=== PATIENT | female | born 1980 | race Two or more races ===

== ENCOUNTER 2025-02-07 05:58 | Inpatient (IN) | payer MEDICARE, OTHER ==
[~2025-02-07] VITALS: Ht 167.6 cm; Wt 106.8 kg
[2025-02-07 05:59] VITALS: BP 164/80; PULSE 94; RESP 18; TEMP 98.1; O2SAT 100
--- NOTE | 2025-02-07 06:28 | ED.PDOC ---
Eye-HPI HPI Comments This is a 44 year old female presenting to the ED with chief complaint of visual loss. Patient reports that she has been experiencing sudden vision loss in her left eye, only able to see white at this time for the past 40 minutes. Patient denies any headache, numbness, weakness, tingling, ear pain, eye pain, or fever. Chief Complaint: Eye Problem Time Seen by MD: 06:16 Reviewed Notes: Nurses Notes, Medications, Allergies Allergies: Coded Allergies: NO KNOWN ALLERGIES (Unverified , 02/07/25) Information Source: Patient Mode of Arrival: Wheelchair Timing: Hours Duration: Since onset Prehospital treatment: None Quality: Visual Loss Eye Location: Left Lids: Normal Conjunctiva: Normal Cornea: Normal Pupils: Normal EOM: Normal Fundus: Normal Slit lamp exam: Normal Anterior chamber: Normal Mouth: Normal ENT Ear Exam: Normal, Normal, Normal Nose: Normal Sinuses: Normal Oropharynx: Normal Onset: Spontaneous Throat Exposed to: None History of: None Past Medical History PAST MEDICAL HISTORY: DM, HTN Surgical History: AKA (Left) Surgical History (Other): Right toe amputations. RAIL TRACK MAINTAINER History: No Pertinent RAIL TRACK MAINTAINER History Family History Family History: Reviewed,noncontributory to illness Social History Smoker: Non-Smoker Alcohol: Denies ETOH Use Drugs: Denies Drug Use Lives In: Home Constitutional: denies: chills, diaphoresis, fatigue, fever, malaise, sweats, weakness, others EENTM: reports: others (Vision loss); denies: blurred vision, double vision, ear bleeding, ear discharge, ear drainage, ear pain, ear ringing, eye pain, eye redness, hearing loss, mouth pain, mouth swelling, nasal discharge, nose bleeding, nose congestion, nose pain, photophobia, tearing, throat pain, throat swelling, voice changes Respiratory: denies: cough, hemoptysis, orthopnea, SOB at rest, shortness of breath, SOB with excertion, stridor, wheezing, others Cardiovascular: denies: chest pain, dizzy spells, diaphoresis, Dyspnea on exertion, edema, irregular heart beat, left arm pain, lightheadedness, palpitations, PND, syncope, others Gastrointestinal: denies: abdomen distended, abdominal pain, blood streaked bowels, constipated, diarrhea, dysphagia, difficulty swallowing, hematemesis, melena, nausea, poor appetite, poor fluid intake, rectal bleeding, rectal pain, vomiting, others Genitourinary: denies: abnormal vagina bleeding, burning, dyspareunia, dysuria, flank pain, frequency, hematuria, incontinence, pain, , vagina discharge, urgency, others Neurological: denies: dizziness, fainting, headache, left sided numbness, left sided weakness, numbness, paresthesia, pre-existing deficit, right sided numbness, right sided weakness, seizure, speech problems, tingling, tremors, weakness, others Musculoskeletal: denies: back pain, gout, joint pain, joint swelling, muscle pain, muscle stiffness, neck pain, others Integumetry: denies: bruises, change in color, change in hair/nails, dryness, laceration, lesions, lumps, rash, wounds, others Allergic/Immunocompromised: denies: Difficulty Healing, Frequent Infections, Hives, Itching, others Hematologic/Lymphatic: denies: anemia, blood clots, easy bleeding, easy bruising, swollen glands, others Endocrine: denies: excessive hunger, excessive sweating, excessive thirst, excessive urination, flushing, intolerance to cold, intolerance to heat, une xplained weight gain, unexplained weight loss, others Psychiatric: denies: anxiety, bipolar disorder, depression, hopeless, panic disorder, schizophrenia, sleepless, suicidal, others All Other Systems: Reviewed and Negative Physical Exam General Appearance: Moderate Distress, Normal HEENT: Normal ENT Inspection, Pharynx Normal, TMs Normal Neck: Full Range of Motion, Non-Tender, Normal, Normal Inspection Respiratory: Chest Non-Tender, Lungs Clear, No Accessory Muscle Use, No Respiratory Distress, Normal Breath Sounds Cardiovascular: No Edema, No JVD, No Murmur, No Gallop, Normal Peripheral Pulses, Regular Rate/Rhythm Breast Exam: Deferred Gastrointestinal: No Organomegaly, Non Tender, No Pulsatile Mass, Normal Bowel Sounds, Soft Genitalia: Deferred Pelvic: Deferred Rectal: Deferred Extremities: No calf tenderness, Normal capillary refill, Non-tender, No pedal edema, Swelling (Left above knee amputation) Musculoskeletal : Apperance: Normal Neurologic: Alert, optical glass etcher II-XII nml as Tested, No Motor Deficits, Normal Affect, Normal Mood, No Sensory Deficits Cerebellar Function: NOT DONE Reflexes: NOT DONE Skin: Dry, Normal Color, Warm, Wounds (Right lower extremity below the calf) Peripheral Pulses: 3+ Radial (R), 3+ Radial (L) Lymphatic: No Adenopathy Was a procedure done? Was a procedure done?: No EENT DIFF Eye: Bacterial, Chlamydial, Viral X-Ray, Labs, Meds, VS Vital Signs Date Time Temp Pulse Resp B/P (MAP) Pulse Ox O2 Delivery O2 Flow Rate FiO2 02/07/25 05:59 98.1 94 18 164/80 100 98.1 Patient alert. Blood pressure elevated. Came in because of problem with her left eye. Vitals stable. Possible TIA. Patient states that she will be having a stroke. She is moving her extremities. Possibly will need MRI. Explained to the patient. Continue monitoring. Time of 1ST Reevaluation: 07:16 Reevaluation 1ST: Unchanged Patient Education/Counseling: Diagnosis, Treatment Family Education/Counseling: No Family Present SEPSIS Sepsis Screen Date sepsis recognized/suspect: Feb 07, 2025 Time Sepsis recognized/suspect: 0559 Recent Procedure: No On Antibiotic Therapy: No Respiratory Rate >20: No Heart Rate >90: No Temp<36 C (96.8 F) or >38.3 C: No SBP <90 or MAP <65 mmHG: No New Acute Mental Status Change: No Is the patient on CPAP, BIPAP,: No Physician Orders Head Without Contrast (02/07/25 06:27) Complete Blood Count (02/07/25 06:27) Urinalysis (02/07/25 06:27) Basic Metabolic Panel (02/07/25 06:27) Vital Signs Date Time Temp Pulse Resp B/P (MAP) Pulse Ox O2 Delivery O2 Flow Rate FiO2 02/07/25 05:59 98.1 94 18 164/80 100 98.1 Departure 1 Departure Time of Disposition: 06:47 Impression: Primary Impression: Uncontrolled diabetes mellitus Qualified Codes: E13.65 - Other specified diabetes mellitus with hyperglycemia Additional Impressions: Hypertensive urgency TIA (transient ischemic attack) Disposition: ADMITTED INPATIENT Admit to: Med Surg Condition: Guarded Critical Care Note Critical Care Time?: No Stability Stability form required: No Heart Score Heart Score: Heart Score Response (Comments) Value History N/A 0 EKG N/A 0 Age N/A 0 Risk Factors N/A 0 Troponin N/A 0 Total 0 I personally scribed for RAYSHAWN FRANK MD ([email or web address]) on 02/07/25 at 06:28. Electronically submitted by Fer Stevens ([email or web address]). I personally scribed for RAYSHAWN FRANK MD ([email or web address]) on 02/07/25 at 06:29. Electronically submitted by Fer Stevens ([email or web address]). RAYSHAWN FRANK MD Feb 07, 2025 06:28
[2025-02-07 06:57] LABS: Hematocrit 32.9 % (36.0-46.0); Hemoglobin 10.0 g/dL (12.2-16.2); Mean Corpuscular Hemoglobin 20.0 pg (28.0-32.0); Mean Corpuscular Volume 66.0 fL (80.0-100.0); Nucleated Red Blood Cells % 0.0 %
[2025-02-07 07:01] LABS: Chloride 100 mmol/L (98-107); Potassium 4.0 mmol/L (3.5-5.1); Sodium 136 mmol/L (136-145)
[2025-02-07 07:02] LABS: Anion Gap 8 (5-15); Calcium 9.2 mg/dL (8.7-10.4); Carbon Dioxide 28 mmol/L (20-31)
--- NOTE | 2025-02-07 07:04 | DVH ---
CT HEAD WITHOUT CONTRAST INDICATION: tia COMPARISON: None TECHNIQUE: CT of the head without intravenous contrast. RADIATION DOSE: CTDIvol: 61.36 mGy, DLP: 1209.16 mGy*cm FINDINGS: There is no evidence of acute intracranial hemorrhage, extra-axial collection, mass effect, midline shift, herniation or hydrocephalus. The ventricles, sulci and cisterns are age appropriate. Focal encephalomalacia is seen in the left posterior temporal lobe. The stallings-white differentiation is intact. The visualized paranasal sinuses and mastoid air cells are clear. The surrounding soft tissues and osseous structures are unremarkable. IMPRESSION: 1. No evidence of acute intracranial abnormality.
[2025-02-07 07:07] LABS: Glucose 196 mg/dL (74-106)
[2025-02-07 07:08] LABS: BUN/Creatinine Ratio 8.3 (10.0-20.0); Blood Urea Nitrogen 6 mg/dL (9-23)
[2025-02-07] MEDS ORDERED: SODIUM CHLORIDE 0.9% 1,000 ML IV SCH (09:30)
[2025-02-07] MEDS ORDERED: ONDANSETRON HCL 4 MG/2 ML VIAL IV PRN (09:30)
[2025-02-07] MEDS ORDERED: NITROGLYCERIN 0.4 MG SL TAB SL PRN (09:30)
[2025-02-07] MEDS ORDERED: TEMAZEPAM 15 MG CAP PO PRN (09:30)
[2025-02-07] MEDS ORDERED: DEXTROSE (50%) 50ML SYRG IV PRN (09:30)
[2025-02-07] MEDS ORDERED: HYDROcodone-ACET 5/325MG TAB PO PRN (09:30)
[2025-02-07] MEDS ORDERED: VANCOMYCIN PER PHARMACY 0 MG IV SCH (09:30)
[2025-02-07] MEDS ORDERED: DOCUSATE SOD 100 MG CAP PO PRN (09:30)
[2025-02-07] MEDS ORDERED: NICOTINE 21MG/24 HR TOPICAL PATCH TD ONE (09:30)
[2025-02-07] MEDS ORDERED: ENOXAPARIN SOD 40 MG/0.4 ML SYRINGE SC SCH (10:00)
[2025-02-07] MEDS ORDERED: VANCOMYCIN 1GM/250ML KIT 250 ML IV SCH (10:00)
[2025-02-07] MEDS ORDERED: MORPHINE SULFATE 4 MG/ML SYR/VIAL IV PRN ×2 (10:00)
[2025-02-07] MEDS ORDERED: ACCU-CHEK COMFORT CURVE STRIP VI SCH (11:30)
[2025-02-07] MEDS ORDERED: InsuLIN REG 1unit/0.01ml Soln (100units/ml) SC SCH ×2 (11:30→22:00)
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
== END 2025-02-07 09:45 | disposition left against medical advice (07) | DRG 638 ==
LOC: ER 05:58 → OVERFLOW 09:28
PROVIDERS: ADMIT Nurse Practitioner Family; ATTEND Nurse Practitioner Family
DX: E11.65 Type 2 diabetes mellitus with hyperglycemia (principal); L03.115 Cellulitis of right lower limb; Z89.612 Acquired absence of left leg above knee; I16.0 Hypertensive urgency; E11.51 Type 2 diabetes mellitus with diabetic peripheral angiopathy without gangrene; D64.9 Anemia, unspecified; F17.200 Nicotine dependence, unspecified, uncomplicated; M32.9 Systemic lupus erythematosus, unspecified; Z53.29 Procedure and treatment not carried out because of patient's decision for other reasons; G89.29 Other chronic pain; Z79.891 Long term (current) use of opiate analgesic; Z71.6 Tobacco abuse counseling; Z79.899 Other long term (current) drug therapy
CPT/HCPCS: 36415; 70450; 80048; 85025; G0378